=== PATIENT | male | born 1970 | race Caucasian/White ===

== ENCOUNTER 2020-01-25 00:13 | Observation (INO) | payer BC ==
--- NOTE | 2020-01-25 02:54 | EDPHYS ---
Physician Documentation [facility] Name: Mekhi Louis Age: 49 yrs Sex: Male : 1970 Arrival Date: 01/25/2020 Time: 00:41 Bed 13 Private MD: ED Physician Evan Tapia HPI: 01/24 02:50 This 49 yrs old Male presents to ER via Ambulatory with complaints of Boil. mikki 02:50 The patient presents with an abscess of the coccyx and gluteal cleft, The patient mikki presents with cellulitis of the coccyx and gluteal cleft. Description: The affected area is moderate sized, localized, draining, erythematous, fluctuant, hot, swollen. Onset: The symptoms/episode began/occurred 14 day(s) ago. Possible cause(s): unknown. Associated signs and symptoms: The patient has no apparent associated signs or symptoms. Modifying factors: the symptoms are alleviated by nothing, remaining still, the symptoms are aggravated by walking, pressure, sitting, squeezing the lesion and expressing the contents. Severity of symptoms: At their worst the symptoms were moderate, in the emergency department the symptoms are unchanged. The patient has not experienced similar symptoms in the past. Historical: - Allergies: 02:44 No Known Allergies; sg - PMHx: 02:44 abscess; sg - PSHx: 02:44 None; sg - Immunization history:: Adult Immunizations not up to date. - Social history:: Smoking status: Patient denies any tobacco usage or history of. - Family history:: not pertinent. ROS: 02:50 Constitutional: Negative for fever, chills, and weight loss, Eyes: Negative for injury, mikki pain, redness, and discharge, ENT: Negative for injury, pain, and discharge, Neck: Negative for injury, pain, and swelling, Cardiovascular: Negative for chest pain, palpitations, and edema, Respiratory: Negative for shortness of breath, cough, wheezing, and pleuritic chest pain, Abdomen/GI: Negative for abdominal pain, nausea, vomiting, diarrhea, and constipation, Back: Negative for injury and pain, : Negative for injury, bleeding, discharge, and swelling, MS/Extremity: Negative for injury and deformity, Neuro: Negative for headache, weakness, numbness, tingling, and seizure, Psych: Negative for depression, anxiety, suicide ideation, homicidal ideation, and hallucinations, Allergy/Immunology: Negative for hives, rash, and allergies, Endocrine: Negative for neck swelling, polydipsia, polyuria, polyphagia, and marked weight changes, Hematologic/Lymphatic: Negative for swollen nodes, abnormal bleeding, and unusual bruising. 02:50 Skin: Positive for erythema, swelling. Exam: 02:50 Constitutional: This is a well developed, well nourished patient who is awake, alert, mikki and in no acute distress. Head/Face: Normocephalic, atraumatic. Eyes: Pupils equal round and reactive to light, extra-ocular motions intact. Lids and lashes normal. Conjunctiva and sclera are non-icteric and not injected. Cornea within normal limits. Periorbital areas with no swelling, redness, or edema. ENT: Nares patent. No nasal discharge, no septal abnormalities noted. Tympanic membranes are normal and external auditory canals are clear. Oropharynx with no redness, swelling, or masses, exudates, or evidence of obstruction, uvula midline. Mucous membranes moist. Neck: Trachea midline, no thyromegaly or masses palpated, and no cervical lymphadenopathy. Supple, full range of motion without nuchal rigidity, or vertebral point tenderness. No Meningismus. Chest/axilla: Normal chest wall appearance and motion. Nontender with no deformity. No lesions are appreciated. Cardiovascular: Regular rate and rhythm with a normal S1 and S2. No gallops, murmurs, or rubs. Normal PMI, no JVD. No pulse deficits. Respiratory: Lungs have equal breath sounds bilaterally, clear to auscultation and percussion. No rales, rhonchi or wheezes noted. No increased work of breathing, no retractions or nasal flaring. Abdomen/GI: Soft, non-tender, with normal bowel sounds. No distension or tympany. No guarding or rebound. No evidence of tenderness throughout. Back: No spinal tenderness. No costovertebral tenderness. Full range of motion. Male : Normal genitalia with no discharge or lesions. MS/ Extremity: Pulses equal, no cyanosis. Neurovascular intact. Full, normal range of motion. Neuro: Awake and alert, GCS 15, oriented to person, place, time, and situation. Cranial nerves II-XII grossly intact. Motor strength 5/5 in all extremities. Sensory grossly intact. Cerebellar exam normal. Normal gait. Psych: Awake, alert, with orientation to person, place and time. Behavior, mood, and affect are within normal limits. 02:50 Skin: Appearance: Color: normal in color, Temperature: normal temperature, Moisture: normal moisture, petechiae, not noted, ecchymosis, not noted, flushing, not noted, diaphoresis is not appreciated, abscess, that is moderate sized, of the coccyx and gluteal cleft, with drainage, with fluctuance, with induration, with surrounding cellulitis, that is moderate. 03:25 ECG was reviewed by the Attending Physician. [facility] Vital Signs: 01:00 BP 140 / 77; Pulse 87; Resp 16; Temp 98.8; Pulse Ox 100% on R/A; Pain 3/10; sg 03:36 BP 136 / 82; Pulse 82; Resp 16; Pulse Ox 100% on R/A; Weight 97.52 kg; Height 6 ft. 0 sg in. (182.88 cm); Pain 0/10; 03:36 Body Mass Index 29.16 (97.52 kg, 182.88 cm) MDM: 02:39 Patient medically screened. [facility] 02:53 Data reviewed: vital signs, nurses notes, lab test result(s), EKG, radiologic studies, [facility] plain films. 01/24 02:50 Order name: CBC with Diff [facility] 01/24 02:50 Order name: Comprehensive Metabolic Panel [facility] 01/24 03:03 Order name: Basic Metabolic Panel [facility] 01/24 03:03 Order name: Basic Metabolic Panel [facility] 01/24 03:03 Order name: CBC with Automated Diff [facility] 01/24 03:03 Order name: CBC with Automated Diff [facility] 01/24 02:50 Order name: Chest Single View XRAY [facility] 01/24 02:50 Order name: EKG; Complete Time: 02:51 [facility] 01/24 03:03 Order name: NPO [facility] 01/24 02:50 Order name: EKG - Nurse/Tech; Complete Time: 03:28 [facility] 01/24 02:50 Order name: Wound dressing: damp to dry; Complete Time: 03:26 [facility] EC:25 Rate is 63 beats/min. Rhythm is regular. QRS [place] is Normal. RI interval is normal. QRS mikki interval is normal. QT interval is normal. No Q waves. T waves are Normal. No ST changes noted. Clinical impression: Normal ECG and No evidence of ischemia. Interpreted by me. Reviewed by me. Administered Medications: 03:10 Drug: Clindamycin 900 mg Route: IVPB; Infused Over: 30 mins; Site: right antecubital; sg 03:30 Follow up: Response: No adverse reaction; IV Status: Infusion continued upon admission sg 03:26 Drug: NS 0.9% 1000 ml Route: IV; Rate: 1 bolus; Site: right antecubital; sg 03:30 Follow up: Response: No adverse reaction; IV Status: Infusion continued upon admission sg 03:26 Not Given (Patient Refused): morphine 2 mg IVP once; (PAIN>8) RASS on ADMN: Combtv4, sg Very Agttd3, Agttd2, Rstlss1, AlertClm0, Drwsy-1, LtSdtn-2, ModSdtn-3, DpSdtn-4, UnArsble-5 x2 03:26 Not Given (Patient Refused): Zofran (Ondansetron) 4 mg IVP once; over 2 minutes sg 03:27 Drug: levofloxacin 750 mg Volume: 150 ml; Route: IVPB; Infused Over: 90 mins; Site: sg right antecubital; 03:30 Follow up: Response: No adverse reaction; IV Status: Infusion continued upon admission sg Disposition: 01/25/20 02:54 Hospitalization ordered by Aryan Horton for Observation. Preliminary diagnosis is Pilonidal sinus with abscess. - Bed requested for Telemetry/MedSurg (observation). - Status is Observation. sg - Condition is Stable. - Problem is new. - Symptoms have improved. Signatures: Dispatcher [employer] EDMS Joann Guillen RN RN Leo Ding RN RN sg Anderson, Corey, MD MD cha Corrections: (The following items were deleted from the chart) 02:59 02:54 Hospitalization Ordered by Aryan Horton MD for Observation. Preliminary diagnosis mw is Pilonidal sinus with abscess. Bed requested for Telemetry/MedSurg (observation). Status is Observation. Condition is Stable. Problem is new. Symptoms have improved. mikki 03:38 02:59 01/25/2020 02:54 Hospitalization Ordered by Aryan Horton MD for Observation. sg Preliminary diagnosis is Pilonidal sinus with abscess. Bed requested for Telemetry/MedSurg (observation). Status is Observation. Condition is Stable. Problem is new. Symptoms have improved. mw
--- NOTE | 2020-01-25 02:54 | ER ---
Nurse's Notes [facility] Name: Mekhi Louis Age: 49 yrs Sex: Male : 1970 Arrival Date: 01/25/2020 Time: 00:41 Bed 13 Private MD: Diagnosis: Pilonidal sinus with abscess Presentation: 01/24 01:00 Chief complaint: Patient states: I have a sore on the top of my crack on my buttocks, sg pt states has a hx of having abscess under arm pits and on buttock in the past, this particular instance the abscess ruptured on its own at the house, reports cannot control the drainage. Coronavirus screen: Proceed with normal triage. Ebola Screen: Patient negative for fever greater than or equal to 101.5 degrees Fahrenheit, and additional compatible Ebola Virus Disease symptoms Patient denies exposure to infectious person. Patient denies travel to an Ebola-affected area in the 21 days before illness onset. No symptoms or risks identified at this time. Initial Sepsis Screen: Does the patient meet any 2 criteria? No. Patient's initial sepsis screen is negative. Does the patient have a suspected source of infection? No. Patient's initial sepsis screen is negative. Risk Assessment: Do you want to hurt yourself or someone else? Patient reports no desire to harm self or others. Onset of symptoms was January 25, 2020. Care prior to arrival: None. Transition of care: patient was not received from another setting of care. 01:00 Method Of Arrival: Ambulatory sg 01:00 Acuity: ANDREA 3 sg Historical: - Allergies: 02:44 No Known Allergies; sg - PMHx: 02:44 abscess; sg - PSHx: 02:44 None; sg - Immunization history:: Adult Immunizations not up to date. - Social history:: Smoking status: Patient denies any tobacco usage or history of. - Family history:: not pertinent. Assessment: 02:42 General: Appears in no apparent distress. well groomed, well developed, well nourished, sg Behavior is calm, cooperative, appropriate for age. Pain: Complains of pain in coccyx Quality of pain is described as tender, throbbing. Neuro: Level of Consciousness is awake, alert, obeys commands, Oriented to person, place, time, situation. Cardiovascular: Patient's skin is warm and dry. Chest pain is denied. Respiratory: Airway is patent Respiratory effort is even, unlabored, Respiratory pattern is regular, symmetrical. GI: Abdomen is round non-distended. : No signs and/or symptoms were reported regarding the genitourinary system. EENT: No signs and/or symptoms were reported regarding the EENT system. Derm: Skin is pink, warm \T\ dry. Derm: Abscess located on coccyx and gluteal cleft is half dollar sized, has purulent drainage, is hot to touch, is red, was lanced by patient prior to arrival. Musculoskeletal: Circulation, motion, and sensation intact. 03:03 Reassessment: xray at bedside at this time. Vital Signs: 01:00 BP 140 / 77; Pulse 87; Resp 16; Temp 98.8; Pulse Ox 100% on R/A; Pain 3/10; sg 03:36 BP 136 / 82; Pulse 82; Resp 16; Pulse Ox 100% on R/A; Weight 97.52 kg; Height 6 ft. 0 sg in. (182.88 cm); Pain 0/10; 03:36 Body Mass Index 29.16 (97.52 kg, 182.88 cm) ED Course: 00:41 Patient arrived in ED. es 01:00 Patient has correct armband on for positive identification. Bed in low position. Call sg light in reach. Side rails up X2. Pulse ox on. NIBP on. Head of bed lowered. Turned to stomach, reports most comfortable. 01:51 Triage completed. sg 01:51 Arm band placed on. sg 02:34 Leo Ding, ANABELL is Primary Nurse. sg 02:39 Evan Tapia MD is Attending Physician. mikki 02:53 Aryan Horton MD is Hospitalizing Provider. [facility] 03:00 No provider procedures requiring assistance completed. Initial lab(s) drawn, by ok, sg sent to lab. Inserted saline lock: 20 gauge in left antecubital area, using aseptic technique. Blood collected. 03:15 Dressings: 4X4s X 2; buttocks wet to dry dressing. Wound care: to cellulitis located on sg buttocks and gluteal cleft and coccyx was cleaned with Patient tolerated well. 03:20 EKG done, by ED staff, reviewed by Evan Tapia MD. sg 03:30 Patient admitted, IV remains in place. intact, No redness/swelling at site. sg Administered Medications: 03:10 Drug: Clindamycin 900 mg Route: IVPB; Infused Over: 30 mins; Site: right antecubital; sg 03:30 Follow up: Response: No adverse reaction; IV Status: Infusion continued upon admission sg 03:26 Drug: NS 0.9% 1000 ml Route: IV; Rate: 1 bolus; Site: right antecubital; sg 03:30 Follow up: Response: No adverse reaction; IV Status: Infusion continued upon admission sg 03:26 Not Given (Patient Refused): morphine 2 mg IVP once; (PAIN>8) RASS on ADMN: Combtv4, sg Very Agttd3, Agttd2, Rstlss1, AlertClm0, Drwsy-1, LtSdtn-2, ModSdtn-3, DpSdtn-4, UnArsble-5 x2 03:26 Not Given (Patient Refused): Zofran (Ondansetron) 4 mg IVP once; over 2 minutes sg 03:27 Drug: levofloxacin 750 mg Volume: 150 ml; Route: IVPB; Infused Over: 90 mins; Site: sg right antecubital; 03:30 Follow up: Response: No adverse reaction; IV Status: Infusion continued upon admission Outcome: 02:54 Decision to Hospitalize by Provider. mikki 03:30 Admitted to Med/surg accompanied by tamara, via stretcher, room 211, with chart. 03:30 Condition: stable 03:30 Instructed on the need for admit, safety practices, Demonstrated understanding of instructions, follow-up care. 03:38 Patient left the ED. Signatures: Leo Ding RN RN sg Anderson, Corey, MD MD cha Salyer, Edna es Corrections: (The following items were deleted from the chart) 02:46 01:00 Acuity: ANDREA 4 [facility]
[2020-01-25] MEDS ORDERED: MORPHINE 4 MG/ML SYR IV PRN (02:59)
[2020-01-25] MEDS ORDERED: ACETAMINOPHEN 500 MG TAB PO PRN (02:59)
[2020-01-25] MEDS ORDERED: ONDANSETRON 4 MG/2 ML VIAL IV PRN (02:59)
[2020-01-25] MEDS ORDERED: Levofloxacin 750mg IV 750 MG/150 ML BAG IV SCH (03:00)
[2020-01-25] MEDS ORDERED: NA CHLORIDE 0.9% 1,000 ML IV SCH (03:00)
[2020-01-25] MEDS ORDERED: ONDANSETRON 4 MG/2 ML VIAL ONE ×2 (03:03→11:35)
[2020-01-25] MEDS ORDERED: CLINDAMYCIN 900MG/D5W 900 MG/50 ML IVPB IV ONE (03:03)
[2020-01-25] MEDS ORDERED: Levofloxacin 750mg IV 750 MG/150 ML BAG IV ONE (03:03)
[2020-01-25] MEDS ORDERED: MORPHINE 4 MG/ML SYR ONE (03:03)
[2020-01-25] MEDS ORDERED: NA CHLORIDE 0.9% 1,000 ML ONE (03:03)
[2020-01-25 03:33] LABS: Absolute Lymphocytes (CBC) 3.3 K/uL (0.7-4.9); Basophils % 0.6 % (0-1.3); Hematocrit 41.1 % (39.6-49.0); MPV 8.9 fL (7.6-11.3); RBC Red Blood Cell Count 4.68 M/uL (4.33-5.43)
[2020-01-25 03:49] LABS: Albumin 3.3 g/dL (3.4-5.0); Bilirubin Total 0.3 mg/dL (0.2-1.0); Potassium 3.6 mmol/L (3.5-5.1); Protein, Total 7.4 g/dL (6.4-8.2)
[2020-01-25 04:01] VITALS: BMI 30.2
--- NOTE | 2020-01-25 06:20 | EKG ---
Test Date: 2020-01-25 Test Time: 03:20:34 [employer] Stock Plan Administrator: SWG MEASUREMENT RESULTS: Intervals: Rate: 63 PA: 130 QRSD: 106 QT: 444 QTc: 454 Spangle: P: 53 PA: 130 QRS: 64 T: 16 INTERPRETIVE STATEMENTS: Normal sinus rhythm with sinus arrhythmia Normal ECG No previous ECG available for comparison Electronically Signed On 01-25-20 06:19:38 CDT by Jai Pendleton
[2020-01-25] MEDS ORDERED: propofoL 200 MG/20 ML VIAL IV ONE (10:50)
[2020-01-25] MEDS ORDERED: LIDOCAINE 2% MPF 5 ML VIAL ONE (10:50)
[2020-01-25] MEDS ORDERED: ROCURONIUM 50 MG/5 ML VIAL IV ONE (10:50)
[2020-01-25] MEDS ORDERED: FENTANYL CITR 100 MCG/2 ML ONE ×3 (10:51→11:41)
[2020-01-25] MEDS ORDERED: BUPIVACA 0.25%/EPI 0.0005%/PF 30 ML VIAL ONE (10:55)
[2020-01-25] MEDS ORDERED: Ringers Lactate 1,000 ML IV ONE (11:09)
--- NOTE | 2020-01-25 11:30 | RAD REPORT ---
EXAM DESCRIPTION: Clydet Single View01/25/2020 3:22 am CLINICAL HISTORY: cough COMPARISON: none FINDINGS: The left lung base is not included in the field of view and is not evaluated The visualized lungs appear clear of acute infiltrate. The heart is normal size IMPRESSION: No acute abnormalities displayed
[2020-01-25] MEDS ORDERED: dexAMETHasone 10 MG/ML VIAL ONE (11:34)
[2020-01-25] MEDS ORDERED: METHYLENE BLUE 0.5% 10 ML AMP ONE (11:34)
[2020-01-25] MEDS ORDERED: KETOROLAC 30 MG/ML INJ ONE (11:35)
[2020-01-25] MEDS ORDERED: EPHEDRINE SULF 50 MG/ML VIAL ONE (11:51)
--- NOTE | 2020-01-25 12:02 | P.OP ---
Preoperative diagnosis: Pilonidal Cyst with Abscess Postoperative diagnosis: Pilonidal Cyst with Abscess Primary procedure: Excisional Debridement of Pilonidal Cyst with Abscess Anesthesia: GETA + Local Estimated blood loss: <5cc Specimen: Cultures - aerobic / anaerobic + debridement tissue Findings: 9 cm x 7cm x 7cm pilonidal abscess Complications: None Transferred to: Recovery Room Condition: Good
[2020-01-25 12:31] VITALS: TEMP 97.2; O2SAT 100
[2020-01-25 12:33] VITALS: BP 134/68
--- NOTE | 2020-01-25 13:14 | OP ---
Date of Procedure: 01/25/2020 Surgeon: Mariya Horton MD, Preoperative Diagnosis: Pilonidal cyst with abscess. Postoperative Diagnosis: Pilonidal cyst with abscess. Procedure Performed: Excisional debridement of pilonidal cyst with abscess. Anesthesia: General endotracheal plus local with 0.5% Marcaine with epinephrine, 27 mL used. Specimen: Cultures, both aerobic and anaerobic speciation and debridement tissue sent. Findings: 9 cm x 7 cm x 7 cm pilonidal abscess with necrotic tissue. No sinus appreciated. No comm unication into the other areas. Extension was however down to the fascia overlying the sacrococcygea l region. The patient was transferred to recovery room in good condition. Procedure In Detail: After informed consent was obtained, patient was brought to the operating room, prepped and draped in the usual sterile fashion. After adequate anesthesia was achieved, an ellipti karrie incision was made around the area of the superior cleft down through and including necrotic tissue for the above-stated dimensions. Dissection continued down using electrocautery circumferentially to take the severe tissue out and se nt off for aerobic and anaerobic speciation as well as debridement tissue removed at this point and s ent off for pathologic examination. The area was copiously irrigated multiple times until completely clear and hemostasis was easily achieved with minimal electrocautery. The area was copiously irriga mariya once again and dried and found to be with good hemostasis. The wound was then packed with damp t o dry Kerlix and a sterile dressing placed over top. The patient tolerated the procedure without evidence of complication, transferred to PACU in good condition. All counts were correct at the end of the case. DANG/COURTNEY Voice ID: [id number] Report ID: [id number]
--- NOTE | 2020-01-25 13:30 | HP ---
Date of Admission: 01/25/2020 Brief History Of Present Illness: Patient is a 49-year-old male from [place], who presents to the hospital with approximately 2 months history of intermittent wheals of superior julián cleft, which h ave spontaneously drained before in the past multiple times. Approximately 2 weeks ago, he noted a c onstellation of 2-3 of these boils, which enlarged on trunk and ultimately drained out spontaneously, caused significant pain and swelling after he was out hunting in [place]. He came to visit his f amily here in [place] at which point he noted a significant increase in pain, swelling to the area of t he superior julián cleft and as such, he was seen in the ER for the above-stated complaint. Past Medical History: Significant for GERD. Past Surgical History: None. Allergies: NO KNOWN DRUG ALLERGIES. Medications: Include omeprazole. Social History: He denies smoking, alcohol, or recreational drug use. Review of Systems: Ten-point review of systems other than HPI, denies. Physical Examination: VITAL SIGNS: At the time of my examination, his vital signs were BMI of 30. His temperature 97.9, p ulse 67, respiratory rate 18, blood pressure 151/86, SpO2 99% on room air. General: He is awake, alert, and oriented. Psychiatric: Appropriate, conversive. HEENT: Normocephalic. Sclerae icteric. Mucous membranes are moist. Oropharynx clear. Neck: Supple. No JVD. Chest: Normal expansion and excursion. Cardiovascular: Regular rate and rhythm. Pulmonary: Clear to auscultation bilaterally. Abdomen: Soft, nontender, nondistended. Extremities: No clubbing, cyanosis, edema. Back: Focused examination of the back, he has a drained abscess at the superior cleft consiste nt with a pilonidal abscess. There is necrotic tissue here as well evident. The remainder of the ex amination is unremarkable other than on skin examination, he had left axillary nodule, which appeared to be small, minimally erythematous, and no drainable collections at this point. Laboratory Data: His laboratory exam reveals white blood count of 9.7, hemoglobin is 14.0, hematocri t of 41.1, platelet count is 233, neutrophils 52%. His sodium is 141, potassium 3.6, chloride 107, c arbon dioxide 28, BUN 29, creatinine 1.2, glucose is 103, total bilirubin 0.3, AST 29, ALT 53, alkali ne phosphatase 114. He had a chest x-ray performed. The official dictation is still pending. The [employer] system is currently down and as such I cannot access this chest x-ray. Assessment And Plan: This is a 49-year-old male who comes in with signs and symptoms of a spontaneou sly draining pilonidal abscess with necrotic tissue and localized infection. 1.IV fluid hydration. 2.Antibiotic coverage. 3.I have explained the risks, benefits, and alternatives of excisional debridement of pilonidal cyst and abscess with associated procedures. The risks, benefits, and alternatives were explained includ ed, but were not limited to bleeding, infection, damage to surrounding tissue, need for further opera tion and procedures, the patient agrees to proceed as indicated. DANG/COURTNEY Voice ID: [id number]
[2020-01-25] MEDS ORDERED: ACETAMINOPHEN 325 MG TABLET PO PRN (14:00)
[2020-01-26] MEDS ORDERED: Levofloxacin 750mg IV 750 MG/150 ML BAG IV SCH (06:00)
== END 2020-01-25 15:16 | disposition home or self-care (01) ==
LOC: ER 00:13 → ERHOLD 02:57 → 2ND 03:32
PROVIDERS: ADMIT Surgery; ATTEND Surgery
PROC: 0JB70ZZ Excision of Back Subcutaneous Tissue and Fascia, Open Approach (ICD-10-PCS; principal; 2020-01-25 11:00)
DX: L05.01 Pilonidal cyst with abscess (principal); L03.317 Cellulitis of buttock; I96 Gangrene, not elsewhere classified; Z11.59 Encounter for screening for other viral diseases; K21.9 Gastro-esophageal reflux disease without esophagitis; Z79.899 Other long term (current) drug therapy
CPT/HCPCS: 96365; 93005; 87070; 85025; 36415; 87205 ×2; 88304; 87075; 87077 ×2; 87186 ×2; 80053; 71045; 96375; 99285; 11042; 11045 ×3; U0002; J2704; J3010 ×3; J1100; G0378 ×3; J7120; J7030; J2405